=== PATIENT | female | born 1950 | race Asian ===

== ENCOUNTER 2017-02-21 18:23 | Inpatient (IN) | payer MEDICARE, BC ==
--- NOTE | 2017-02-21 18:39 | ED Physician Chart ---
ED Chief Complaint/HPI - Patient Information Date Seen:: 02/21/17 Time Seen:: 18:30 Chief Complaint:: Abdominal Pain History of Present Illness:: onset x one day of diffuse, intermittent, crampy abdominal pain, anorexia, failure to thrive, and poor oral intake; no report of trauma, H/As, S/T, neck pain, C/P, SOB, Flank Pain, Cough, N/V/D/C, fever, chills, or urinary s/s Allergies:: Allergies Allergy/AdvReac Type Severity Reaction Status Date / Time No Known Allergies Allergy Verified 02/21/17 18:30 Historian:: Patient, EMS, Family Member Review:: Nurse's Note Reviewed, EMS run form Reviewed, Transfer documents Reviewed ED Review of Systems - Review of Systems General/Constitutional: Fever, No chills, No weight loss, Weakness, No diaphoresis, No edema, No loss of appetite Skin: Skin lesions, No rash, No bruising Head: No headache, No light-headedness Eyes: No loss of vision, No pain, No diplopia ENT: No earache, No nasal drainage, No sore throat, No tinnitus Neck: No neck pain, No swelling, No thyromegaly, No stiffness, No mass noted Cardio Vascular: No chest pain, Palpitations, No PND, No orthopnea, No edema Pulmonary: No SOB, Cough, No cough, No sputum, No wheezing GI: Nausea, Vomiting, Diarrhea, No pain, No melena, No hematochezia, No constipation, No hematemesis G/U: No dysuria, No frequency, No hematuria Musculoskeletal: Bone or joint pain, No bone or joint pain, Back pain, Muscle pain Endocrine: Polyuria, Polydipsia Psychiatric: Prior psych history, Depression, No anxiety, No suicidal ideation, No homicidal ideation, No auditory hallucination, No visual hallucination Hematopoietic: No bruising, No lymphadenopathy Allergic/Immuno: No urticaria, No angioedema Neurological: No syncope, No focal symptoms, Weakness, No paresthesia, No headache, No seizure, No dizziness, No confusion, No vertigo ED Past Medical History - Past Medical History Obtainable: Yes Past Medical History: HTN, DM, Dyslipidemia, PUD/GERD, Arthritis Family History: Diabetes Melitus, HTN Social History: Non Smoker, No Alcohol, No Drug Use, Single, Care Facility Surgical History: other ( Surgery) Psychiatricy History: Depression Medication: Reviewed Family Medical History - Family Member Mother History Unknown: Yes ED Physical Exam - Physical Examination General/Constitutional: Awake, Well-developed, well-nourished, Alert, No distress, GCS 15, Non-toxic appearing, Ambulatory Head: Atraumatic Eyes: Lids, conjuctiva normal, PERRL, EOMI Skin: Nl inspection, No rash, No skin lesions, No ecchymosis, Well hydrated, No lymphadenopathy Other Skin comments:: + Ulcers ENMT: External ears, nose nl, Nasal exam nl, Lips, teeth, gums nl Neck: Nontender, Full ROM w/o pain, No JVD, No nuchal rigidity, No bruit, No mass, No stridor Respiratory: Nl effort/Exclusion, Clear to Auscultation, No Wheeze/Rhonchi/Rales Cardio Vascular: RRR, No murmur, gallop, rubs, NL S1 S2 GI: No tenderness/rebounding/guarding, No organomegaly, No hernia, Normal BS's, Nondistended, No mass/bruits, No McBurney tenderness : No CVA tenderness Extremities: No tenderness or effusion, Full ROM, normal strength in all extremities, No edema, Normal digits & nails Neuro/Psych: Alert/oriented, DTR's symmetric, Normal sensory exam, Normal motor strength, Judgement/insight normal, Mood normal, Normal gait, No focal deficits Misc: Normal back, No paraspinal tenderness ED Septic Shock - . Is Septic Shock (SBP<90, OR Lactate>4 mmol\L) present?: No ED Reassessment (Disposition) - Reassessment Reassessment Condition:: Improved - Diagnosis Diagnosis:: Dehydration; Failure To Thrive; Anorexia; Abdominal Pain; Ulcers; Sepsis - Aftercare/Follow up Instructions Aftercare/Follow-Up Instructions:: Counseled pt regarding lab results/diagnosis & need follow up, Counseled pt & family regarding lab results/diagnosis & need follow up - Patient Disposition Discharge/Transfer:: Acute Care w/in this hosp Accepting Physician:: Dr. Enamorado Time Called:: 1844 Time Responded:: 18:45 Admitted to:: Telemetry Spoke to:: Dr. Enamorado Admitting Medical Physician:: Dr. Fei Condition at Disposition:: Stable, Improved
[2017-02-21] MEDS ORDERED: cefTRIAXone 1 GM in Sodium Chloride 0.9% 50 ML IV ONE (18:47)
[2017-02-21] MEDS ORDERED: Sodium Chloride 0.9% 1,000 ML IV ONE (18:49)
[2017-02-21 19:16] LABS: % BASOPHILS 0.7 % (0.0-2.0); % EOSINOPHILS 15.1 % (0.0-5.0); % LYMPHOCYTES 11.9 % (20.0-50.0); % MONOCYTES 8.5 % (2.0-10.0); % NEUTROPHILS 63.8 % (40.0-80.0); HEMOGLOBIN 11.1 gm/dL (12-16); MEAN CELL VOLUME 89.6 fl (81-100); MEAN CORPUSCULAR HEMOGLOBIN 30.3 pg (27.0-31.0); MEAN CORPUSCULAR HGB CONC 33.8 pg (28.0-36.0); MEAN PLATELET VOLUME 7.9 fl; NEUTROPHILE ABSOLUTE 7.1 Th/cmm (1.8-8.0); PLATELET COUNT 384 Th/cmm (150-400); RED BLOOD COUNT 3.68 Mil/cmm (3.80-5.20); WHITE BLOOD COUNT 11.2 Th/cmm (4.8-10.8)
[2017-02-21 19:32] LABS: ALB/GLOB RATIO 0.9 (1.0-1.8); ALKALINE PHOSPHATASE 158 U/L (34-104); ANION GAP 15.4 (7.0-16.0); BILIRUBIN,TOTAL 0.6 mg/dL (0.3-1.0); BUN - UREA NITROGEN 17 mg/dL (7-25); BUN/CREATININE RATIO 21.3; CALCIUM SERUM 9.2 mg/dL (8.6-10.3); CARBON DIOXIDE 13.4 mEq/L (21.0-31.0); CHLORIDE 106 mEq/L (98-107); CHOLESTEROL 206 mg/dL (<200); CREATININE - SERUM 0.8 mg/dL (0.6-1.2); GLUCOSE 102 mg/dL (70-105); POTASSIUM SERUM 3.8 mEq/L (3.5-5.1); SGOT 29 U/L (13-39); SGPT/ALT 21 U/L (7-52); SODIUM SERUM 131 mEq/L (136-145); TRIGLYCERIDES 134 mg/dL (<150)
--- NOTE | 2017-02-21 19:38 | ED Physician Chart ---
ED Chief Complaint/HPI - Patient Information Allergies:: Allergies Allergy/AdvReac Type Severity Reaction Status Date / Time No Known Allergies Allergy Verified 02/21/17 18:30 Vitals:: Vital Signs - 8 hr 02/21/17 02/21/17 18:30 19:33 Temp 99.5 F 99.3 F HR 114 110 RR 22 20 BP 143/66 138/67 O2 Sat % 94 96 Family Medical History - Family Member Mother History Unknown: Yes ED Labs/Radiology/EKG Results - Lab Results Results: Laboratory Tests 02/21/17 02/21/17 02/21/17 19:00 19:00 19:04 WBC 11.2 H RBC 3.68 L Hgb 11.1 L Hct 33.0 L MCV 89.6 MCH 30.3 MCHC Differential 33.8 RDW 17.0 Plt Count 384 MPV 7.9 Neutrophils % 63.8 Lymphocytes % 11.9 L Monocytes % 8.5 Eosinophils % 15.1 H Basophils % 0.7 Sodium 131 L Potassium 3.8 Chloride 106 Carbon Dioxide 13.4 L Anion Gap 15.4 BUN 17 Creatinine 0.8 Est GFR ( Amer) > 60.0 Est GFR (Non-Af Amer) > 60.0 BUN/Creatinine Ratio 21.3 Glucose 102 Whole Bld Lactic Acid 0.62 Calcium 9.2 Total Bilirubin 0.6 AST 29 ALT 21 Alkaline Phosphatase 158 H Creatine Kinase 10 L Total Protein 7.1 Albumin 3.3 L Globulin 3.8 Albumin/Globulin Ratio 0.9 L Triglycerides 134 Cholesterol 206 H LDL Cholesterol Direct 153 HDL Cholesterol 32 CBC: Mild leukocytosis and mild anemia. Platelet count was within the normal range. Metabolic studies show a mild hyponatremia with a sodium of 131. The serum potassium is within normal parameters as is the chloride. Bicarbonate was slightly depressed at 13.4. Renal function studies were within normal parameters. Lactic acid was 0.62. Liver function studies showed a normal AST and ALT. Was mild elevation of the alkaline phosphatase. Her CK level was normal. EKG: The patient has a sinus tachycardia at a rate of 104. No ectopy is noted. His CO interval is normal. QRS duration is normal. The QT interval is normal. The patient has a normal QRS axis. T waves are mildly flattened in the precordial leads from V1 through V5. No ST segment elevation or depression. Impression: No ischemic findings. Mild tachycardia. Single view chest x-ray: No cardiomegaly or CHF. No no pneumothorax or pleural effusions. No areas of pulmonary infiltrate or consolidation. Pression: No acute cardiopulmonary findings. ED Septic Shock - . Is Septic Shock (SBP<90, OR Lactate>4 mmol\L) present?: No - <6hrs of presentation: Vital Signs: Vital Signs - 8 hr 02/21/17 02/21/17 18:30 19:33 Temp 99.5 F 99.3 F HR 114 110 RR 22 20 BP 143/66 138/67 O2 Sat % 94 96
[2017-02-21 20:09] LABS: INR 0.9 (0.5-1.4); PROTHROMBIN TIME (TEST) 9.4 SECONDS (9.5-11.5)
[2017-02-21] MEDS ORDERED: Sodium Chloride 0.9% 1,000 ML IV SCH (22:54)
[2017-02-21 23:45] VITALS: BP 140/70
[2017-02-22] MEDS: D5-0.45NS 1,000 ML IV SCH ×3 (00:58→21:53)
[2017-02-22 04:30] LABS: URINE BILIRUBIN NEGATIVE (NEGATIVE); URINE BLOOD NEGATIVE (NEGATIVE); URINE GLUCOSE (UA) NEGATIVE (NEGATIVE); URINE KETONE 15 mg/dL (NEGATIVE); URINE PROTEIN 30 mg/dL (NEGATIVE); URINE UROBILINOGEN 0.2 E.U./dL (0.2 - 1.0)
[2017-02-22 04:45] LABS: URINE COLOR YELLOW
[2017-02-22 04:46] LABS: URINE BACTERIA MODERATE /hpf (NONE SEEN); URINE EPITHELIAL CELLS FEW /lpf (FEW); URINE RBC 0-2 /hpf (0-5); URINE WBC 25-50 /hpf (0-5)
[2017-02-22 05:09] LABS: % LYMPHOCYTES 13.9 % (20.0-50.0); % MONOCYTES 9.6 % (2.0-10.0); % NEUTROPHILS 60.5 % (40.0-80.0); HEMOGLOBIN 10.1 gm/dL (12-16); MEAN CELL VOLUME 89.4 fl (81-100); MEAN CORPUSCULAR HEMOGLOBIN 30.7 pg (27.0-31.0); MEAN CORPUSCULAR HGB CONC 34.4 pg (28.0-36.0); MEAN PLATELET VOLUME 7.7 fl; NEUTROPHILE ABSOLUTE 5.4 Th/cmm (1.8-8.0); PLATELET COUNT 338 Th/cmm (150-400); RED CELL DISTRIBUTION WIDTH 16.6 % (11.5-20.0); WHITE BLOOD COUNT 9.1 Th/cmm (4.8-10.8)
[2017-02-22 05:17] LABS: HEMATOCRIT 29.5 % (41.0-60)
[2017-02-22 05:22] LABS: ANION GAP 13.1 (7.0-16.0); BUN - UREA NITROGEN 13 mg/dL (7-25); BUN/CREATININE RATIO 18.6; CALCIUM SERUM 8.5 mg/dL (8.6-10.3); CARBON DIOXIDE 14.4 mEq/L (21.0-31.0); CHLORIDE 108 mEq/L (98-107); CREATININE - SERUM 0.7 mg/dL (0.6-1.2); GLUCOSE 102 mg/dL (70-105); POTASSIUM SERUM 3.5 mEq/L (3.5-5.1); SODIUM SERUM 132 mEq/L (136-145)
--- NOTE | 2017-02-22 07:45 | Diagnostic Imaging Report ---
Portable chest x-ray Time: 1912 hours History: Chest pain Allowing for portable technique the heart size is normal. No focal pulmonary parenchymal processes. No hilar or mediastinal abnormalities. Impression: No acute abnormalities.
[2017-02-22] MEDS ORDERED: ARMODAFINIL 100 MG PO SCH (09:00)
[2017-02-22] MEDS: Pantoprazole 40 mg EC Tab PO SCH ×2 (09:53→17:19)
[2017-02-22] MEDS: Ferrous Sulfate 325 MG TAB PO SCH (09:54)
--- NOTE | 2017-02-22 10:40 | Diagnostic Imaging Report ---
Ultrasound abdomen HISTORY: Abdominal pain COMPARISON: None Technique: Sonography of the abdomen was performed in multiple planes. FINDINGS: Exam is limited due to bowel gas. The liver demonstrates normal echogenicity with no evidence of focal lesions. The liver measures 16 cm. The gallbladder was difficult to visualize. Gallbladder sludge and likely multiple small gallstones are noted. The gallbladder wall measures 3 mm. The common bile duct measures 3 mm. Evaluation of the pancreas is limited due to bowel gas. The right kidney measures 10.8 x 5.2 cm. The left kidney measures 11.0 x 5.4 cm. No evidence of focal lesions or hydronephrosis. Note, the renal margins are not well-defined due to bowel gas. The spleen measures 9.9 cm. The visualized portion of the abdominal aorta with are within normal limits in size. IMPRESSION: Limited assessment of the gallbladder. Gallbladder sludge is noted with likely multiple small gallstones. Borderline prominent gallbladder wall is noted. No pericholecystic fluid. Please correlate with clinical findings. No evidence of hydronephrosis.
[2017-02-22] MEDS: cefTRIAXone 1 GM in Sodium Chloride 0.9% 50 ML IV SCH (21:59)
--- NOTE | 2017-02-22 22:47 | History & Physical ---
ADMIT DATE: HISTORY OF PRESENT ILLNESS: The patient came to the Emergency Room complaining of severe abdominal pain ____ crampy pain, and vomiting, and also abnormal electrolytes, and she was tachycardic. The patient was seen in the Emergency Room, was noted to have tachycardia and hyponatremia and possible UTI and the patient was admitted. The history was obtained talking to the family members. He is [place]ron[place]. The patient has fever, no chills. No weight loss, has some skin lesion, no history of any headache, no neck pain. No chest pain, no shortness of breath, no nausea, vomiting. The patient has some dysuria and frequency. PAST MEDICAL HISTORY: As enumerated above, history of hypertension, diabetes, hyperlipidemia, GERD, arthritis. SOCIAL HISTORY: Nonsmoker, nondrinker. PAST SURGICAL HISTORY: surgery in the past and the patient has history of depression. PHYSICAL EXAMINATION: GENERAL: Awake, alert female, tachycardic, appears toxic. HEAD: Normal. ENT: Normal. LUNGS: Bilateral rhonchi. CARDIOVASCULAR SYSTEM: S1, S2 heard. ABDOMEN: Soft. Bowel sounds are heard. CENTRAL NERVOUS SYSTEM: Grossly normal. DIAGNOSES: Vomiting, abdominal pain, failure to thrive, dehydration, also has a history of rule out sepsis, history of hypertension, diabetes, hyperlipidemia, peptic ulcer disease, gastroesophageal reflux disease, history of arthritis. PLAN: The patient is going to be admitted and we will do a septic workup, give her IV fluids, antibiotics, and I will have Dr. Obi Ruff, ID doctor see the patient as well and I will follow the patient. [facility]# [id number]
[2017-02-23] MEDS: Ferrous Sulfate 325 MG TAB PO SCH (09:07)
[2017-02-23] MEDS: Pantoprazole 40 mg EC Tab PO SCH ×2 (09:08→17:13)
[2017-02-23 09:59] LABS: % LYMPHOCYTES 12.5 % (20.0-50.0); % MONOCYTES 12.3 % (2.0-10.0); % NEUTROPHILS 65.2 % (40.0-80.0); HEMATOCRIT 31.5 % (41.0-60); HEMOGLOBIN 10.6 gm/dL (12-16); MEAN CELL VOLUME 90.3 fl (81-100); MEAN CORPUSCULAR HEMOGLOBIN 30.3 pg (27.0-31.0); MEAN CORPUSCULAR HGB CONC 33.6 pg (28.0-36.0); MEAN PLATELET VOLUME 7.4 fl; NEUTROPHILE ABSOLUTE 8.1 Th/cmm (1.8-8.0); PLATELET COUNT 329 Th/cmm (150-400); RED BLOOD COUNT 3.49 Mil/cmm (3.80-5.20); RED CELL DISTRIBUTION WIDTH 16.8 % (11.5-20.0)
[2017-02-23 10:11] LABS: WHITE BLOOD COUNT 12.3 Th/cmm (4.8-10.8)
[2017-02-23 10:22] LABS: ANION GAP 11.6 (7.0-16.0); BUN - UREA NITROGEN 7 mg/dL (7-25); BUN/CREATININE RATIO 8.8; CARBON DIOXIDE 15.7 mEq/L (21.0-31.0); CHLORIDE 108 mEq/L (98-107); CREATININE - SERUM 0.8 mg/dL (0.6-1.2); GLUCOSE 108 mg/dL (70-105); POTASSIUM SERUM 3.3 mEq/L (3.5-5.1); SODIUM SERUM 132 mEq/L (136-145)
--- NOTE | 2017-02-23 10:26 | General Progress Note ---
Subjective - Review of Systems Events since last encounter: patient with c/o abd pain no acute distress Objective - Results Result Diagrams: 02/23/17 09:45 02/22/17 04:49 Recent Labs: Laboratory Last Values WBC 12.3 Th/cmm (4.8-10.8) H D 02/23/17 09:45 RBC 3.49 Mil/cmm (3.80-5.20) L 02/23/17 09:45 Hgb 10.6 gm/dL (12-16) L 02/23/17 09:45 Hct 31.5 % (41.0-60) L 02/23/17 09:45 MCV 90.3 fl (81-100) 02/23/17 09:45 MCH 30.3 pg (27.0-31.0) 02/23/17 09:45 MCHC Differential 33.6 pg (28.0-36.0) 02/23/17 09:45 RDW 16.8 % (11.5-20.0) 02/23/17 09:45 Plt Count 329 Th/cmm (150-400) 02/23/17 09:45 MPV 7.4 fl 02/23/17 09:45 Neutrophils % 65.2 % (40.0-80.0) 02/23/17 09:45 Lymphocytes % 12.5 % (20.0-50.0) L 02/23/17 09:45 Monocytes % 12.3 % (2.0-10.0) H 02/23/17 09:45 Eosinophils % 10.0 % (0.0-5.0) H 02/23/17 09:45 Basophils % 0.0 % (0.0-2.0) 02/23/17 09:45 PT 9.4 SECONDS (9.5-11.5) L 02/21/17 19:00 INR 0.90 (0.5-1.4) 02/21/17 19:00 PTT (Actin FS) 33.8 SECONDS (26.0-38.0) 02/21/17 19:00 Sodium 132 mEq/L (136-145) L 02/22/17 04:49 Potassium 3.5 mEq/L (3.5-5.1) 02/22/17 04:49 Chloride 108 mEq/L (98-107) H 02/22/17 04:49 Carbon Dioxide 14.4 mEq/L (21.0-31.0) L 02/22/17 04:49 Anion Gap 13.1 (7.0-16.0) 02/22/17 04:49 BUN 13 mg/dL (7-25) 02/22/17 04:49 Creatinine 0.7 mg/dL (0.6-1.2) 02/22/17 04:49 Est GFR ( Amer) > 60.0 ml/min (>90) 02/22/17 04:49 Est GFR (Non-Af Amer) > 60.0 ml/min 02/22/17 04:49 BUN/Creatinine Ratio 18.6 02/22/17 04:49 Glucose 102 mg/dL (70-105) 02/22/17 04:49 Whole Bld Lactic Acid 0.62 mmol/L (0.60-1.99) 02/21/17 19:04 Calcium 8.5 mg/dL (8.6-10.3) L 02/22/17 04:49 Total Bilirubin 0.6 mg/dL (0.3-1.0) 02/21/17 19:00 AST 29 U/L (13-39) 02/21/17 19:00 ALT 21 U/L (7-52) 02/21/17 19:00 Alkaline Phosphatase 158 U/L (34-104) H 02/21/17 19:00 Creatine Kinase 10 U/L (30-223) L 02/21/17 19:00 Troponin I 0.01 ng/mL (0.01-0.05) 02/21/17 19:04 B-Natriuretic Peptide 17.8 pg/mL (5.0-100.0) 02/21/17 19:00 Total Protein 7.1 gm/dL (6.0-8.3) 02/21/17 19:00 Albumin 3.3 gm/dL (3.7-5.3) L 02/21/17 19:00 Globulin 3.8 gm/dL 02/21/17 19:00 Albumin/Globulin Ratio 0.9 (1.0-1.8) L 02/21/17 19:00 Triglycerides 134 mg/dL (<150) 02/21/17 19:00 Cholesterol 206 mg/dL (<200) H 02/21/17 19:00 LDL Cholesterol Direct 153 mg/dL (75-193) 02/21/17 19:00 HDL Cholesterol 32 mg/dL (23-92) 02/21/17 19:00 Urine Source CLEAN C 02/22/17 02:10 Urine Color YELLOW 02/22/17 02:10 Urine Clarity HAZY (CLEAR) 02/22/17 02:10 Urine pH 6.0 (4.6 - 8.0) 02/22/17 02:10 Ur Specific [place] 1.020 (1.005-1.030) 02/22/17 02:10 Urine Protein 30 mg/dL (NEGATIVE) H 02/22/17 02:10 Urine Glucose (UA) NEGATIVE mg/dL (NEGATIVE) 02/22/17 02:10 Urine Ketones 15 mg/dL (NEGATIVE) H 02/22/17 02:10 Urine Blood NEGATIVE (NEGATIVE) 02/22/17 02:10 Urine Nitrate NEGATIVE (NEGATIVE) 02/22/17 02:10 Urine Bilirubin NEGATIVE (NEGATIVE) 02/22/17 02:10 Urine Urobilinogen 0.2 E.U./dL (0.2 - 1.0) 02/22/17 02:10 Ur Leukocyte Esterase SMALL (NEGATIVE) H 02/22/17 02:10 Urine RBC 0-2 /hpf (0-5) 02/22/17 02:10 Urine WBC 25-50 /hpf (0-5) H 02/22/17 02:10 Ur Epithelial Cells FEW /lpf (FEW) 02/22/17 02:10 Urine Bacteria MODERATE /hpf (NONE SEEN) 02/22/17 02:10 - Physical Exam Vitals and I&O: Vital Signs Temp 98.7 F 02/23/17 08:00 Pulse 107 02/23/17 08:00 Resp 20 02/23/17 08:00 BP 117/55 02/23/17 08:00 Pulse Ox 96 02/23/17 08:00 Intake & Output 02/22/17 02/23/17 02/23/17 18:59 06:59 18:59 Intake Total 1310 1891.667 Balance 1310 1891.667 Weight (lbs) 71.668 kg 60.781 kg Intake: Intake, IV Amount 460 1891.667 D5-0.45NS 1,000 ml @ 436 081 4405.667 mls/hr IV .Q10H [facility] Rx#: [id number] cefTRIAXone 1 gm In 50 Sodium Chloride 0.9% 50 ml @ 100 mls/hr IV Q24HR [facility] Rx#:[id number] Oral 850 Other: # Voids 5 3 Stool Characteristics Soft Active Medications: Current Medications Acetaminophen (Tylenol) 650 mg PO Q6HR PRN PRN Reason: MILD-MODERATE PAIN Stop: 04/22/17 22:48 Last Admin: 02/23/17 04:48 Dose: 650 mg Allopurinol (Zyloprim) 100 mg PO TID [facility] Stop: 04/23/17 08:59 Last Admin: 02/23/17 09:08 Dose: 100 mg Ascorbic Acid (Vitamin C) 500 mg PO BID [facility] Stop: 04/23/17 08:59 Last Admin: 02/23/17 09:08 Dose: 500 mg Bethanechol Chloride (Urecholine) 25 mg PO TID [facility] Stop: 04/23/17 08:59 Last Admin: 02/23/17 09:08 Dose: 25 mg Docusate Sodium (Colace) 100 mg PO BID [facility] Stop: 04/23/17 08:59 Last Admin: 02/23/17 09:07 Dose: 100 mg Ferrous Sulfate (Iron) 325 mg PO DAILY [facility] Stop: 04/23/17 08:59 Last Admin: 02/23/17 09:07 Dose: 325 mg Ceftriaxone Sodium 1 gm/ (Sodium Chloride) 50 mls @ 100 mls/hr IV Q24HR [facility] Stop: 04/23/17 20:59 Last Infusion: 02/23/17 06:19 Dose: Infused Dextrose/Sodium Chloride (D5-0.45ns) 1,000 mls @ 100 mls/hr IV .Q10H [facility] Stop: 04/22/17 22:59 Last Infusion: 02/23/17 06:18 Dose: 100 mls/hr Megestrol Acetate (Megace) 400 mg PO BID [facility] Stop: 04/23/17 08:59 Last Admin: 02/23/17 09:07 Dose: 400 mg Metoclopramide HCl (Reglan) 10 mg PO ACHS [facility] Stop: 04/23/17 07:29 Last Admin: 02/23/17 06:38 Dose: 10 mg Mirtazapine (Remeron) 15 mg PO HS [facility] PRN Reason: Protocol Stop: 04/23/17 20:59 Last Admin: 02/22/17 21:55 Dose: 15 mg Miscellaneous (Armodafinil [Armodafinil]) 100 mg PO TID [facility] Stop: 04/23/17 08:59 Ondansetron HCl (Zofran) 4 mg IV Q8H PRN PRN Reason: Nausea / Vomiting Stop: 04/22/17 22:55 Pantoprazole Sodium (Protonix) 40 mg PO BID [facility] Stop: 04/23/17 08:59 Last Admin: 02/23/17 09:08 Dose: 40 mg Senna (Senna) 17.2 mg PO HS [facility] Stop: 04/23/17 20:59 Last Admin: 02/22/17 21:55 Dose: 17.2 mg Sertraline HCl (Zoloft) 50 mg PO DAILY [facility] Stop: 04/23/17 08:59 Last Admin: 02/23/17 09:08 Dose: 50 mg Tramadol HCl (Ultram) 50 mg PO Q6H PRN PRN Reason: SEVERE PAIN Stop: 04/22/17 22:48 General: No acute distress HEENT: Atraumatic, PERRLA Neck: Supple, Thyromegaly Cardiovascular: Regular rate, Normal S1 Lungs: Clear to auscultation Abdomen: Bowel sounds Assessment/Plan - Problem List Patient Problems: All Active Problems DEHYDRATION WITH POOR ORAL INTAKE (Acute) - Plan Plan: cpm
[2017-02-23] MEDS ORDERED: Probiotic Screen MC PRN (11:15)
--- NOTE | 2017-02-23 17:01 | Consultation ---
Consult Note - Consult Note Service Date: 02/23/17 Referring Physician: Lindsay Enamorado Consult Note: PHYSICIAN Consultation Note: Date of Admission: 02/21/17 Purpose of Consultation: UTI. Chief Complaint: Patient CINTHYA CORNEJO was admitted to [facility] with DEHYDRATION, FAILURE TO THRIVE,R/O SEPSIS. History of Present Illness: 66 year old female was brought for hospital for not eating enough for last couple of month. She was diagnosed uterine ca with mets, and had total hysterectomy and bilateral oophorectomy was performed one month ago. she had been afebrile. no pain, no dysuria. urine culture grew Enterococcus and ID consult was called for further antibiotic management. Past Medical History: HTN, DM, Dyslipidemia, PUD/GERD, Arthritis, Uterine CA with mets. Diagnoses TYPE 2 DIABETES MELLITUS WITHOUT COMPLICATIONS (02/21/17) HYPERLIPIDEMIA, UNSPECIFIED (02/21/17) DEHYDRATION (02/21/17) HYPO-OSMOLALITY AND HYPONATREMIA (02/21/17) ESSENTIAL (PRIMARY) HYPERTENSION (02/21/17) GASTRO-ESOPHAGEAL REFLUX DISEASE WITHOUT ESOPHAGITIS (02/21/17) PEPTIC ULC, SITE UNSP, UNSP AC OR CHR, W/O HEMOR OR PERF (02/21/17) UNSPECIFIED OSTEOARTHRITIS, UNSPECIFIED SITE (02/21/17) UNSPECIFIED ABDOMINAL PAIN (02/21/17) ADULT FAILURE TO THRIVE (02/21/17) Allergies Allergy/AdvReac Type Severity Reaction Status Date / Time No Known Allergies Allergy Verified 02/21/17 18:30 Vital Signs Temp 99.1 F 02/23/17 16:00 Pulse 105 02/23/17 16:00 Resp 20 02/23/17 16:00 BP 115/65 02/23/17 16:00 Pulse Ox 98 02/23/17 16:00 Intake & Output 02/22/17 02/23/17 02/23/17 18:59 06:59 18:59 Intake Total 1310 1891.667 Balance 1310 1891.667 Weight (lbs) 71.668 kg 60.781 kg Intake: Intake, IV Amount 460 1891.667 D5-0.45NS 1,000 ml @ 050 063 7716.667 mls/hr IV .Q10H [facility] Rx#: [id number] cefTRIAXone 1 gm In 50 Sodium Chloride 0.9% 50 ml @ 100 mls/hr IV Q24HR [facility] Rx#:[id number] Oral 850 Other: # Voids 5 3 Stool Characteristics Soft Laboratory Results - last 24 hr 02/23/17 02/23/17 09:45 09:45 WBC 12.3 H D RBC 3.49 L Hgb 10.6 L Hct 31.5 L MCV 90.3 MCH 30.3 MCHC Differential 33.6 RDW 16.8 Plt Count 329 MPV 7.4 Neutrophils % 65.2 Lymphocytes % 12.5 L Monocytes % 12.3 H Eosinophils % 10.0 H Basophils % 0.0 Sodium 132 L Potassium 3.3 L Chloride 108 H Carbon Dioxide 15.7 L Anion Gap 11.6 BUN 7 Creatinine 0.8 Est GFR ( Amer) > 60.0 Est GFR (Non-Af Amer) > 60.0 BUN/Creatinine Ratio 8.8 Glucose 108 H Calcium 8.0 L Home Medication Medication Instructions Recorded Type Acetaminophen [Tylenol] 650 mg PO Q6HR PRN 02/21/17 History Allopurinol 100 mg PO TID 02/21/17 History Armodafinil 100 mg PO TID 02/21/17 History Ascorbic Acid 500 mg PO BID 02/21/17 History Bethanechol Chloride 25 mg PO TID 02/21/17 History Docusate Sodium [Colace] 100 mg PO BID 02/21/17 History Ferrous Sulfate 1 tab PO DAILY 02/21/17 History Megestrol Acetate 400 mg PO BID 02/21/17 History Metoclopramide HCl 10 mg PO ACHS 02/21/17 History Pantoprazole [Protonix] 40 mg PO BID 02/21/17 History Sennosides A and B [Senna] 2 tab PO HS 02/21/17 History Sertraline HCl [Zoloft] 50 mg PO DAILY 02/21/17 History Tramadol HCl [Ultram] 50 mg PO Q6H PRN 02/21/17 History Current Medications Generic Name Dose Route Start Last Admin Trade Name Freq PRN Reason Stop Dose Admin Acetaminophen 650 mg 02/21/17 22:49 02/23/17 04:48 Tylenol PO 04/22/17 22:48 650 mg Q6HR PRN Administration MILD-MODERATE PAIN Allopurinol 100 mg 02/22/17 09:00 02/23/17 09:08 Zyloprim PO 04/23/17 08:59 100 mg TID [facility] Administration Ascorbic Acid 500 mg 02/22/17 09:00 02/23/17 09:08 Vitamin C PO 04/23/17 08:59 500 mg BID [facility] Administration Bethanechol Chloride 25 mg 02/22/17 09:00 02/23/17 09:08 Urecholine PO 04/23/17 08:59 25 mg TID [facility] Administration Docusate Sodium 100 mg 02/22/17 09:00 02/23/17 09:07 Colace PO 04/23/17 08:59 100 mg BID [facility] Administration Ferrous Sulfate 325 mg 02/22/17 09:00 02/23/17 09:07 Iron PO 04/23/17 08:59 325 mg DAILY [facility] Administration Ceftriaxone Sodium 1 gm/ 50 mls @ 100 mls/hr 02/22/17 21:00 02/23/17 06:19 Sodium Chloride IV 04/23/17 20:59 Infused Q24HR [facility] Infusion Dextrose/Sodium Chloride 1,000 mls @ 100 mls/hr 02/21/17 23:00 02/23/17 06:18 D5-0.45ns IV 04/22/17 22:59 100 mls/hr .Q10H [facility] Infusion Lactobacillus Rhamnosus 1 each 02/24/17 09:00 Culturelle PO 04/25/17 08:59 DAILY [facility] Megestrol Acetate 400 mg 02/22/17 09:00 02/23/17 09:07 Megace PO 04/23/17 08:59 400 mg BID [facility] Administration Metoclopramide HCl 10 mg 02/22/17 07:30 02/23/17 12:24 Reglan PO 04/23/17 07:29 10 mg ACHS [facility] Administration Mirtazapine 15 mg 02/22/17 21:00 02/22/17 21:55 Remeron PO 04/23/17 20:59 15 mg HS [facility] Administration Protocol Miscellaneous 100 mg 02/22/17 09:00 Armodafinil [Armodafinil] PO 04/23/17 08:59 TID [facility] Miscellaneous 1 ea 02/23/17 11:15 Probiotic Screen MC 04/24/17 11:14 PRN PRN PROTOCOL Ondansetron HCl 4 mg 02/21/17 22:56 Zofran IV 04/22/17 22:55 Q8H PRN Nausea / Vomiting Pantoprazole Sodium 40 mg 02/22/17 09:00 02/23/17 09:08 Protonix PO 04/23/17 08:59 40 mg BID [facility] Administration Senna 17.2 mg 02/22/17 21:00 02/22/17 21:55 Senna PO 04/23/17 20:59 17.2 mg HS [facility] Administration Sertraline HCl 50 mg 02/22/17 09:00 02/23/17 09:08 Zoloft PO 04/23/17 08:59 50 mg DAILY [facility] Administration Tramadol HCl 50 mg 02/21/17 22:49 Ultram PO 04/22/17 22:48 Q6H PRN SEVERE PAIN Review of Systems: A 12 point ROS was reviewed with the pertinent positive and negatives noted in the HPI. Social History Smoking Status Unknown if ever smoked Family Medical History Family Medical History Start: 02/21/17 20: 49 Freq: ONCE Status: Active Document 02/21/17 23:47 ASHOK (Rec: 02/21/17 23:54 ASHOK ROMERO- [id number]) Family Medical History Mother History Unknown Yes Physical Exam: General: Comfortable lying in bed not in acute distress. HEENT: Head: Normocephalic. Atraumatic. Oral cavity: Moist, pink tongue. Eyes : No pallor and icterus. Neck: Supple, no JVD, no use of XI muscle. Cardio: S1 and S2 within normal limits regular rhythm. Respiratory: Vesicular breath sound, no crackles no wheezing. Abdominal: Soft, nontender nondistended, bowel sounds present, surgical wound is healing well. acolostomy OK in LLQ. Genital/Urinary: Deferred Extremities: N CCE. Neurological: Alert, awake, oriented 3. Assessment: 1. UTI. 2. H/o uterine CA. 3. Failure to thrive. 4. H/o PUD. Plan: Change rocephin to unasyn. follow up urine c/s report. CT A/P if not done. Thank you Dr Enamorado for involving me in taking care of this patient. Sofy, Obi Ruff M.D. [id number]
--- NOTE | 2017-02-23 22:06 | Consultation ---
DATE OF CONSULTATION: 02/22/2017 REASON FOR CONSULTATION: Failure to thrive. HISTORY OF PRESENT ILLNESS: This consult obtained through the courtesy of Dr. Enamorado for this 66-year-old with history of abdominal cancer. Family is not sure whether it was uterine or pancreatic. She had hysterectomy and they got most of the tumor, but still was outside of that. The patient is getting chemotherapy. Meanwhile, she is not eating well, so GI consult was called in for further evaluation. The patient has lost weight since surgery. She came to the Emergency Room. She was in extensive care facility, found to be tachycardic and hyponatremic. PAST MEDICAL HISTORY: Abdominal cancer, hypertension, diabetes, hyperlipidemia, GERD, and arthritis. PAST SURGICAL HISTORY: Abdominal surgery for cancer. SOCIAL HISTORY: Nonsmoker, nonalcoholic, IV drug abuser. FAMILY HISTORY: Noncontributory. REVIEW OF SYSTEMS: There is weight loss. There is abdominal pain. There is nausea. ALLERGIES: NO KNOWN DRUG ALLERGIES. MEDICATIONS: The patient is on Tylenol, allopurinol, vitamin C, Rocephin, Colace, iron, lactobacillus, Megace, and metoprolol. PHYSICAL EXAMINATION: GENERAL: The patient is awake, oriented to self, place, and time, in mild distress. VITAL SIGNS: Temperature was 99.5. Blood pressure was 120/62. Heart rate was 106. HEAD AND NECK: Pupils are reactive to light and accommodation. Extraocular muscles are intact. Sclerae are anicteric. Conjunctivae not pale. Oral cavity, no lesion. NECK: Supple. No jugular venous distention. No carotid bruit or lymph node. CHEST: Good respiratory movements. LUNGS: Clear to auscultation. CARDIOVASCULAR: Regular rate and rhythm. No murmur or gallop. ABDOMEN: Soft. Positive bowel sound. Mild epigastric tenderness. Mild periumbilical tenderness. EXTREMITIES: No edema. CENTRAL NERVOUS SYSTEM: Grossly nonfocal. LABORATORY DATA: White count was 11.2 and now was normal, H and H of 10.1 and 29.5 with platelets of 338,000. PT is 9.4 seconds. Chemistry showed alkaline phosphatase 158. The rest of liver enzymes is normal. IMPRESSION: This is a 66-year-old with abdominal cancer, now failure to thrive. ASSESSMENT AND PLAN: Failure to thrive. Discussed with the patient and daughter options were G-tube or to start supplements and they wanted the supplement to start, Remeron and Boost, and then further recommendations to follow, but if it is not improving, they are going to consider PEG. 2. Abdominal pain, most likely from the cancer. We will appreciate Oncology evaluation, but meanwhile, there is no reason for further investigation. She had extensive investigations in the past, but we will try to get records from other hospitals. Other medical problems such as diabetes, hypertension, and hyperlipidemia as per Dr. Enamorado. Thank you Dr. Enamorado for allowing me to participate in the care of the patient. If you have any further questions, please let me know. JOB# [id number] JOHN
[2017-02-23] MEDS: D5-0.45NS 1,000 ML IV SCH (23:06)
[2017-02-23] MEDS: cefTRIAXone 1 GM in Sodium Chloride 0.9% 50 ML IV SCH (23:11)
[2017-02-24] MEDS: Ferrous Sulfate 325 MG TAB PO SCH (09:14)
[2017-02-24] MEDS: Lactobacillus Rhamnosus 10 Billion CFU Capsule PO SCH (09:14)
[2017-02-24] MEDS: Pantoprazole 40 mg EC Tab PO SCH ×2 (09:15→17:08)
[2017-02-24 09:19] LABS: % BASOPHILS 0.5 % (0.0-2.0); % EOSINOPHILS 12.6 % (0.0-5.0); % LYMPHOCYTES 15.6 % (20.0-50.0); % MONOCYTES 9.8 % (2.0-10.0); % NEUTROPHILS 61.5 % (40.0-80.0); HEMATOCRIT 30.2 % (41.0-60); HEMOGLOBIN 10.2 gm/dL (12-16); MEAN CELL VOLUME 88.8 fl (81-100); MEAN CORPUSCULAR HEMOGLOBIN 30.1 pg (27.0-31.0); MEAN CORPUSCULAR HGB CONC 33.9 pg (28.0-36.0); MEAN PLATELET VOLUME 7.6 fl; NEUTROPHILE ABSOLUTE 7.1 Th/cmm (1.8-8.0); PLATELET COUNT 327 Th/cmm (150-400); WHITE BLOOD COUNT 11.5 Th/cmm (4.8-10.8)
[2017-02-24] MEDS: D5-0.45NS 1,000 ML IV SCH ×2 (09:31→21:23)
--- NOTE | 2017-02-24 12:31 | Infectious Disease Prog Note ---
Infectious Disease Subjective - Review of Systems Service Date: 02/24/17 Subjective: There is no new change, there is no fever. Infectious Disease Objective - Results Result Diagrams: 02/24/17 09:00 02/23/17 09:45 Recent Labs: Laboratory Last Values WBC 11.5 Th/cmm (4.8-10.8) H 02/24/17 09:00 RBC 3.40 Mil/cmm (3.80-5.20) L 02/24/17 09:00 Hgb 10.2 gm/dL (12-16) L 02/24/17 09:00 Hct 30.2 % (41.0-60) L 02/24/17 09:00 MCV 88.8 fl (81-100) 02/24/17 09:00 MCH 30.1 pg (27.0-31.0) 02/24/17 09:00 MCHC Differential 33.9 pg (28.0-36.0) 02/24/17 09:00 RDW 17.0 % (11.5-20.0) 02/24/17 09:00 Plt Count 327 Th/cmm (150-400) 02/24/17 09:00 MPV 7.6 fl 02/24/17 09:00 Neutrophils % 61.5 % (40.0-80.0) 02/24/17 09:00 Lymphocytes % 15.6 % (20.0-50.0) L 02/24/17 09:00 Monocytes % 9.8 % (2.0-10.0) 02/24/17 09:00 Eosinophils % 12.6 % (0.0-5.0) H 02/24/17 09:00 Basophils % 0.5 % (0.0-2.0) 02/24/17 09:00 PT 9.4 SECONDS (9.5-11.5) L 02/21/17 19:00 INR 0.90 (0.5-1.4) 02/21/17 19:00 PTT (Actin FS) 33.8 SECONDS (26.0-38.0) 02/21/17 19:00 Sodium 132 mEq/L (136-145) L 02/23/17 09:45 Potassium 3.3 mEq/L (3.5-5.1) L 02/23/17 09:45 Chloride 108 mEq/L (98-107) H 02/23/17 09:45 Carbon Dioxide 15.7 mEq/L (21.0-31.0) L 02/23/17 09:45 Anion Gap 11.6 (7.0-16.0) 02/23/17 09:45 BUN 7 mg/dL (7-25) 02/23/17 09:45 Creatinine 0.8 mg/dL (0.6-1.2) 02/23/17 09:45 Est GFR ( Amer) > 60.0 ml/min (>90) 02/23/17 09:45 Est GFR (Non-Af Amer) > 60.0 ml/min 02/23/17 09:45 BUN/Creatinine Ratio 8.8 02/23/17 09:45 Glucose 108 mg/dL (70-105) H 02/23/17 09:45 Whole Bld Lactic Acid 0.62 mmol/L (0.60-1.99) 02/21/17 19:04 Calcium 8.0 mg/dL (8.6-10.3) L 02/23/17 09:45 Total Bilirubin 0.6 mg/dL (0.3-1.0) 02/21/17 19:00 AST 29 U/L (13-39) 02/21/17 19:00 ALT 21 U/L (7-52) 02/21/17 19:00 Alkaline Phosphatase 158 U/L (34-104) H 02/21/17 19:00 Creatine Kinase 10 U/L (30-223) L 02/21/17 19:00 Troponin I 0.01 ng/mL (0.01-0.05) 02/21/17 19:04 B-Natriuretic Peptide 17.8 pg/mL (5.0-100.0) 02/21/17 19:00 Total Protein 7.1 gm/dL (6.0-8.3) 02/21/17 19:00 Albumin 3.3 gm/dL (3.7-5.3) L 02/21/17 19:00 Globulin 3.8 gm/dL 02/21/17 19:00 Albumin/Globulin Ratio 0.9 (1.0-1.8) L 02/21/17 19:00 Triglycerides 134 mg/dL (<150) 02/21/17 19:00 Cholesterol 206 mg/dL (<200) H 02/21/17 19:00 LDL Cholesterol Direct 153 mg/dL (75-193) 02/21/17 19:00 HDL Cholesterol 32 mg/dL (23-92) 02/21/17 19:00 Urine Source CLEAN C 02/22/17 02:10 Urine Color YELLOW 02/22/17 02:10 Urine Clarity HAZY (CLEAR) 02/22/17 02:10 Urine pH 6.0 (4.6 - 8.0) 02/22/17 02:10 Ur Specific [place] 1.020 (1.005-1.030) 02/22/17 02:10 Urine Protein 30 mg/dL (NEGATIVE) H 02/22/17 02:10 Urine Glucose (UA) NEGATIVE mg/dL (NEGATIVE) 02/22/17 02:10 Urine Ketones 15 mg/dL (NEGATIVE) H 02/22/17 02:10 Urine Blood NEGATIVE (NEGATIVE) 02/22/17 02:10 Urine Nitrate NEGATIVE (NEGATIVE) 02/22/17 02:10 Urine Bilirubin NEGATIVE (NEGATIVE) 02/22/17 02:10 Urine Urobilinogen 0.2 E.U./dL (0.2 - 1.0) 02/22/17 02:10 Ur Leukocyte Esterase SMALL (NEGATIVE) H 02/22/17 02:10 Urine RBC 0-2 /hpf (0-5) 02/22/17 02:10 Urine WBC 25-50 /hpf (0-5) H 02/22/17 02:10 Ur Epithelial Cells FEW /lpf (FEW) 02/22/17 02:10 Urine Bacteria MODERATE /hpf (NONE SEEN) 02/22/17 02:10 - Physical Exam Vitals and I&O: Vital Signs Temp 98.7 F 02/24/17 04:00 Pulse 101 02/24/17 04:00 Resp 20 02/24/17 04:00 BP 115/67 02/24/17 04:00 Pulse Ox 98 02/24/17 04:00 Intake & Output 02/23/17 02/24/17 02/24/17 18:59 06:59 18:59 Intake Total 638.333 846.667 303.333 Output Total 400 300 Balance 238.333 546.667 303.333 Weight (lbs) 60.781 kg 61.28 kg Intake: Intake, IV Amount 158.333 746.667 303.333 D5-0.45NS 1,000 ml @ 100 158.333 696.667 303.333 mls/hr IV .Q10H [facility] Rx#: [id number] cefTRIAXone 1 gm In 50 Sodium Chloride 0.9% 50 ml @ 100 mls/hr IV Q24HR [facility] Rx#:[id number] Oral 480 100 Output: Stool 400 300 Other: # Voids 2 Active Medications: Current Medications Acetaminophen (Tylenol) 650 mg PO Q6HR PRN PRN Reason: MILD-MODERATE PAIN Stop: 04/22/17 22:48 Last Admin: 02/23/17 04:48 Dose: 650 mg Allopurinol (Zyloprim) 100 mg PO TID [facility] Stop: 04/23/17 08:59 Last Admin: 02/24/17 09:14 Dose: 100 mg Ascorbic Acid (Vitamin C) 500 mg PO BID [facility] Stop: 04/23/17 08:59 Last Admin: 02/24/17 09:15 Dose: 500 mg Bethanechol Chloride (Urecholine) 25 mg PO TID [facility] Stop: 04/23/17 08:59 Last Admin: 02/24/17 09:15 Dose: 25 mg Docusate Sodium (Colace) 100 mg PO BID [facility] Stop: 04/23/17 08:59 Last Admin: 02/24/17 09:14 Dose: 100 mg Ferrous Sulfate (Iron) 325 mg PO DAILY [facility] Stop: 04/23/17 08:59 Last Admin: 02/24/17 09:14 Dose: 325 mg Ceftriaxone Sodium 1 gm/ (Sodium Chloride) 50 mls @ 100 mls/hr IV Q24HR [facility] Stop: 04/23/17 20:59 Last Infusion: 02/24/17 06:04 Dose: Infused Dextrose/Sodium Chloride (D5-0.45ns) 1,000 mls @ 100 mls/hr IV .Q10H [facility] Stop: 04/22/17 22:59 Last Admin: 02/24/17 09:31 Dose: 100 mls/hr Lactobacillus Rhamnosus (Culturelle) 1 each PO DAILY [facility] Stop: 04/25/17 08:59 Last Admin: 02/24/17 09:14 Dose: 1 each Megestrol Acetate (Megace) 400 mg PO BID [facility] Stop: 04/23/17 08:59 Last Admin: 02/24/17 09:14 Dose: 400 mg Metoclopramide HCl (Reglan) 10 mg PO ACHS [facility] Stop: 04/23/17 07:29 Last Admin: 02/24/17 12:12 Dose: 10 mg Mirtazapine (Remeron) 15 mg PO HS [facility] PRN Reason: Protocol Stop: 04/23/17 20:59 Last Admin: 02/23/17 22:01 Dose: 15 mg Miscellaneous (Armodafinil [Armodafinil]) 100 mg PO TID [facility] Stop: 04/23/17 08:59 Miscellaneous (Probiotic Screen) 1 ea [facility] PRN PRN PRN Reason: PROTOCOL Stop: 04/24/17 11:14 Ondansetron HCl (Zofran) 4 mg IV Q8H PRN PRN Reason: Nausea / Vomiting Stop: 04/22/17 22:55 Last Admin: 02/23/17 17:20 Dose: 4 mg Pantoprazole Sodium (Protonix) 40 mg PO BID [facility] Stop: 04/23/17 08:59 Last Admin: 02/24/17 09:15 Dose: 40 mg Senna (Senna) 17.2 mg PO HS [facility] Stop: 04/23/17 20:59 Last Admin: 02/23/17 22:01 Dose: 17.2 mg Sertraline HCl (Zoloft) 50 mg PO DAILY [facility] Stop: 04/23/17 08:59 Last Admin: 02/24/17 09:15 Dose: 50 mg Tramadol HCl (Ultram) 50 mg PO Q6H PRN PRN Reason: SEVERE PAIN Stop: 04/22/17 22:48 General: no acute distress, well developed, well nourished HEENT: atraumatic, normocephalic Neck: supple, no thyromegaly, no lymphadenopathy Cardiovascular: S1S2, regular Lungs: clear to auscultation bilaterally, clear to percussion Abdomen: soft, no tender, no distended, no hepatomegaly, no splenomegaly Extremities: no cyanosis, no clubbing, no edema Neurological: awake, alert, oriented Skin: intact Infectious Disease Assmt/Plan - Problem List Patient Problems: All Active Problems DEHYDRATION WITH POOR ORAL INTAKE (Acute) - Assessment Assessment: 1. UTI. 2. H/o uterine CA. 3. Failure to thrive. 4. H/o PUD. - Plan Plan: Continue Unasyn. final antibiotics as per culture report. Nutritional Asmnt/Malnutr-PDOC - Dietary Evaluation Malnutrition Findings (Please click <Entered> for more info): Nutritional Asmnt/Malnutrition Start: 02/23/17 13: 56 Text: Status: Complete Freq: Document 02/23/17 13:57 RUSSELL (Rec: 02/23/17 14:11 MPENAFUMEI ROMERO -[id number]) Nutritional Asmnt/Malnutrition Patient General Information Nutritional Screening High Risk Screening Diagnosis Dehydration, FTT, r/o sepsis Pertinent Medical Hx/Surgical Hx HTN, DM, HLD, GERD, arthritis per MD notes Subjective Information Pt seen resting in bed at time of RD visit. Pt appeared somewhat over-nourished for ht . Pt reported ht: 5'1" and wt: 140 lb. Pt reported UBW: 195 lb (about 4 months ago). Pt stated that she has had poor appetite for the last several months, and noted that she had her uterus and ovaries removed, and also had a colostomy done about a month and a half ago, and since then , has not had a desire to eat much. Pt had a bit of soft/ liquid BM in colostomy pouch. Pt reported that she is lactose intolerant. Pt reported use of fish oil. RD inquired about oral supplement Boost Glucose Control; pt reported that she doesn't care for it as she finds it tastes sour. Per RN, pt has no pending plans/procedures, and that pt was started on appetite stimulants. RD encouraged pt to try to increase appetite and PO intakes for adequate nutrition and wt maintenance; pt acknowledged. Pt is not yet meeting optimal nutritional needs. Current diet remains appropriate. Pt declined nutrition education. Current Diet Order/ Nutrition Support CCHO, Boost Glucose Control QID (additional 1000 kcal/day, 56 gm protein) Patient / S.O Can Pertinent Medications VIT C, lipitor, D5%/NaCl IV at 100 ml/hr (408 kcal/day), colace, iron, megace, reglan, remeron, protonix, senna Pertinent Labs 02/22/17: Na 132 L, WBC 12.3 H , Cl 108 H, H/H 10.6 L/31.5 L, Ca 8.5 L 10/17/17: ALB 3.3 L Nutritional Hx/Data Height 1.55 m Height (Calculated Centimeters) 154.9 Current Weight (lbs) 60.781 kg Weight (Calculated Kilograms) 60.8 Weight (Calculated Grams) 17384.4 Usual body Weight (lbs) 195 % Usual Body Weight 69 [place] Body Weight 105 lb, 48 kg. Adj IBW ( obesity): 112 lb, 51 kg % [place] Body Weight 128 Recent Weight Change Yes Weight Status Overweight GI Symptoms GI Symptoms None Food Allergies No Usual diet at home Regular Skin Integrity/Comment: Skin intact; surgical incision noted per RN report Current %PO Negligible < 25% Estimated Nutritional Goals BEE in Kcals: Adj wt of IBW Calories/Kcals/Kg 30-35 kcal/kg Adj IBW for sepsis Kcals Calculated 2996-1423 kcal/day Protein: Adj wt of IBW Protein g/k.5-2 gm/kg Adj IBW for sepsis Protein Calculated 77-102 gm/day Fluid: ml 1.5-1.8 L/day (1 ml/kcal/day for maintenance) Nutritional Problem 1. Problem Problem Inadequate nutritional intakes Etiology related to lack of appetite Signs/Symptoms: as evidenced by pt's negligible PO intake records as well as pt report of 60 lb wt loss within past 4 months. Malnutrition Alert Food and Nutrition Intake (Severe) <50% est energy req 5days Interpretation of weight loss (Severe) >7.5% in 3 months Body Fat Depletion (Non-Severe) Mild Depletion Muscle Mass (Non-Severe) Mild Depletion Is there a minimum of two criteria Yes selected? Query Text:Check all the applicable criteria. A minimum of two criteria are recommended for diagnosis of either severe or non-severe malnutrition. Malnutrition Related to Morbid Obesity Malnutrition related to morbid obesity No Intervention/Recommendation Recommendations by RD Increase Calorie Intake Protein supplementation Comments * Recommend continuing CCHO, Boost Glucose Control QID per MD * Recommend encourage increase PO intakes Expected Outcomes/Goals Expected Outcomes/Goals - Monitor appetite and PO intakes w/ goal of pt meeting at least 75% of estimated nutritional needs, labs trending WNL, normal GI function, and skin integrity/ wt maintenance
[2017-02-24] MEDS ORDERED: Potassium Chloride 20 mEq ER Tab PO ONE (20:00)
--- NOTE | 2017-02-24 20:00 | Internal Medicine Prog Note ---
Internal Medicine Subjective - Subjective Service Date: 02/24/17 Patient seen and examined:: with staff Patient is:: awake Per staff patient has:: tolerating meds Internal Medicine Objective - Results Result Diagrams: 02/24/17 09:00 02/23/17 09:45 Recent Labs: Laboratory Last Values WBC 11.5 Th/cmm (4.8-10.8) H 02/24/17 09:00 RBC 3.40 Mil/cmm (3.80-5.20) L 02/24/17 09:00 Hgb 10.2 gm/dL (12-16) L 02/24/17 09:00 Hct 30.2 % (41.0-60) L 02/24/17 09:00 MCV 88.8 fl (81-100) 02/24/17 09:00 MCH 30.1 pg (27.0-31.0) 02/24/17 09:00 MCHC Differential 33.9 pg (28.0-36.0) 02/24/17 09:00 RDW 17.0 % (11.5-20.0) 02/24/17 09:00 Plt Count 327 Th/cmm (150-400) 02/24/17 09:00 MPV 7.6 fl 02/24/17 09:00 Neutrophils % 61.5 % (40.0-80.0) 02/24/17 09:00 Lymphocytes % 15.6 % (20.0-50.0) L 02/24/17 09:00 Monocytes % 9.8 % (2.0-10.0) 02/24/17 09:00 Eosinophils % 12.6 % (0.0-5.0) H 02/24/17 09:00 Basophils % 0.5 % (0.0-2.0) 02/24/17 09:00 PT 9.4 SECONDS (9.5-11.5) L 02/21/17 19:00 INR 0.90 (0.5-1.4) 02/21/17 19:00 PTT (Actin FS) 33.8 SECONDS (26.0-38.0) 02/21/17 19:00 Sodium 132 mEq/L (136-145) L 02/23/17 09:45 Potassium 3.3 mEq/L (3.5-5.1) L 02/23/17 09:45 Chloride 108 mEq/L (98-107) H 02/23/17 09:45 Carbon Dioxide 15.7 mEq/L (21.0-31.0) L 02/23/17 09:45 Anion Gap 11.6 (7.0-16.0) 02/23/17 09:45 BUN 7 mg/dL (7-25) 02/23/17 09:45 Creatinine 0.8 mg/dL (0.6-1.2) 02/23/17 09:45 Est GFR ( Amer) > 60.0 ml/min (>90) 02/23/17 09:45 Est GFR (Non-Af Amer) > 60.0 ml/min 02/23/17 09:45 BUN/Creatinine Ratio 8.8 02/23/17 09:45 Glucose 108 mg/dL (70-105) H 02/23/17 09:45 Whole Bld Lactic Acid 0.62 mmol/L (0.60-1.99) 02/21/17 19:04 Calcium 8.0 mg/dL (8.6-10.3) L 02/23/17 09:45 Total Bilirubin 0.6 mg/dL (0.3-1.0) 02/21/17 19:00 AST 29 U/L (13-39) 02/21/17 19:00 ALT 21 U/L (7-52) 02/21/17 19:00 Alkaline Phosphatase 158 U/L (34-104) H 02/21/17 19:00 Creatine Kinase 10 U/L (30-223) L 02/21/17 19:00 Troponin I 0.01 ng/mL (0.01-0.05) 02/21/17 19:04 B-Natriuretic Peptide 17.8 pg/mL (5.0-100.0) 02/21/17 19:00 Total Protein 7.1 gm/dL (6.0-8.3) 02/21/17 19:00 Albumin 3.3 gm/dL (3.7-5.3) L 02/21/17 19:00 Globulin 3.8 gm/dL 02/21/17 19:00 Albumin/Globulin Ratio 0.9 (1.0-1.8) L 02/21/17 19:00 Triglycerides 134 mg/dL (<150) 02/21/17 19:00 Cholesterol 206 mg/dL (<200) H 02/21/17 19:00 LDL Cholesterol Direct 153 mg/dL (75-193) 02/21/17 19:00 HDL Cholesterol 32 mg/dL (23-92) 02/21/17 19:00 Urine Source CLEAN C 02/22/17 02:10 Urine Color YELLOW 02/22/17 02:10 Urine Clarity HAZY (CLEAR) 02/22/17 02:10 Urine pH 6.0 (4.6 - 8.0) 02/22/17 02:10 Ur Specific [place] 1.020 (1.005-1.030) 02/22/17 02:10 Urine Protein 30 mg/dL (NEGATIVE) H 02/22/17 02:10 Urine Glucose (UA) NEGATIVE mg/dL (NEGATIVE) 02/22/17 02:10 Urine Ketones 15 mg/dL (NEGATIVE) H 02/22/17 02:10 Urine Blood NEGATIVE (NEGATIVE) 02/22/17 02:10 Urine Nitrate NEGATIVE (NEGATIVE) 02/22/17 02:10 Urine Bilirubin NEGATIVE (NEGATIVE) 02/22/17 02:10 Urine Urobilinogen 0.2 E.U./dL (0.2 - 1.0) 02/22/17 02:10 Ur Leukocyte Esterase SMALL (NEGATIVE) H 02/22/17 02:10 Urine RBC 0-2 /hpf (0-5) 02/22/17 02:10 Urine WBC 25-50 /hpf (0-5) H 02/22/17 02:10 Ur Epithelial Cells FEW /lpf (FEW) 02/22/17 02:10 Urine Bacteria MODERATE /hpf (NONE SEEN) 02/22/17 02:10 - Physical Exam Vitals and I&O: Vital Signs Temp 99.1 F 02/24/17 16:00 Pulse 100 02/24/17 16:00 Resp 19 02/24/17 16:00 BP 105/55 02/24/17 16:00 Pulse Ox 97 02/24/17 16:00 Intake & Output 02/24/17 02/24/17 02/25/17 06:59 18:59 06:59 Intake Total 846.667 303.333 Output Total 300 Balance 546.667 303.333 Weight (lbs) 135 lb 1.6 oz Intake: Intake, IV Amount 746.667 303.333 D5-0.45NS 1,000 ml @ 100 696.667 303.333 mls/hr IV .Q10H [facility] Rx#: [id number] cefTRIAXone 1 gm In 50 Sodium Chloride 0.9% 50 ml @ 100 mls/hr IV Q24HR [facility] Rx#:[id number] Oral 100 Output: Stool 300 Other: # Voids 2 Active Medications: Current Medications Acetaminophen (Tylenol) 650 mg PO Q6HR PRN PRN Reason: MILD-MODERATE PAIN Stop: 04/22/17 22:48 Last Admin: 02/23/17 04:48 Dose: 650 mg Allopurinol (Zyloprim) 100 mg PO TID [facility] Stop: 04/23/17 08:59 Last Admin: 02/24/17 15:49 Dose: 100 mg Ascorbic Acid (Vitamin C) 500 mg PO BID [facility] Stop: 04/23/17 08:59 Last Admin: 02/24/17 17:08 Dose: 500 mg Bethanechol Chloride (Urecholine) 25 mg PO TID [facility] Stop: 04/23/17 08:59 Last Admin: 02/24/17 15:51 Dose: 25 mg Docusate Sodium (Colace) 100 mg PO BID [facility] Stop: 04/23/17 08:59 Last Admin: 02/24/17 17:08 Dose: 100 mg Ferrous Sulfate (Iron) 325 mg PO DAILY [facility] Stop: 04/23/17 08:59 Last Admin: 02/24/17 09:14 Dose: 325 mg Ceftriaxone Sodium 1 gm/ (Sodium Chloride) 50 mls @ 100 mls/hr IV Q24HR [facility] Stop: 04/23/17 20:59 Last Infusion: 02/24/17 06:04 Dose: Infused Dextrose/Sodium Chloride (D5-0.45ns) 1,000 mls @ 100 mls/hr IV .Q10H [facility] Stop: 04/22/17 22:59 Last Admin: 02/24/17 09:31 Dose: 100 mls/hr Lactobacillus Rhamnosus (Culturelle) 1 each PO DAILY [facility] Stop: 04/25/17 08:59 Last Admin: 02/24/17 09:14 Dose: 1 each Megestrol Acetate (Megace) 400 mg PO BID [facility] Stop: 04/23/17 08:59 Last Admin: 02/24/17 17:09 Dose: Not Given Metoclopramide HCl (Reglan) 10 mg PO ACHS [facility] Stop: 04/23/17 07:29 Last Admin: 02/24/17 15:52 Dose: 10 mg Mirtazapine (Remeron) 15 mg PO HS [facility] PRN Reason: Protocol Stop: 04/23/17 20:59 Last Admin: 02/23/17 22:01 Dose: 15 mg Miscellaneous (Armodafinil [Armodafinil]) 100 mg PO TID [facility] Stop: 04/23/17 08:59 Miscellaneous (Probiotic Screen) 1 ea MC PRN PRN PRN Reason: PROTOCOL Stop: 04/24/17 11:14 Ondansetron HCl (Zofran) 4 mg IV Q8H PRN PRN Reason: Nausea / Vomiting Stop: 04/22/17 22:55 Last Admin: 02/23/17 17:20 Dose: 4 mg Pantoprazole Sodium (Protonix) 40 mg PO BID [facility] Stop: 04/23/17 08:59 Last Admin: 02/24/17 17:08 Dose: 40 mg Potassium Chloride (Klor-Con) 20 meq PO X1 [facility] Stop: 02/24/17 20:01 Senna (Senna) 17.2 mg PO HS [facility] Stop: 04/23/17 20:59 Last Admin: 02/23/17 22:01 Dose: 17.2 mg Sertraline HCl (Zoloft) 50 mg PO DAILY [facility] Stop: 04/23/17 08:59 Last Admin: 02/24/17 09:15 Dose: 50 mg Tramadol HCl (Ultram) 50 mg PO Q6H PRN PRN Reason: SEVERE PAIN Stop: 04/22/17 22:48 HEENT: NC/AT, PERRLA Lungs: CTAB Cardiovascular: RRR, Normal S1, Normal S2, without murmur Abdomen: soft, non-tender, non-distended, positive bowel sound Neurological: no change Internal Medicine Assmt/Plan - Assessment Assessment: DEHYDRATION WITH POOR ORAL INTAKE (Acute) - Plan Plan: IVF FOR HYDRATION MONITOR LABS CPM Nutritional Asmnt/Malnutr-PDOC - Dietary Evaluation Malnutrition Findings (Please click <Entered> for more info): Nutritional Asmnt/Malnutrition Start: 02/23/17 13: 56 Text: Status: Complete Freq: Document 02/23/17 13:57 RUSSELL (Rec: 02/23/17 14:11 RUSSELL ROMERO -[id number]) Nutritional Asmnt/Malnutrition Patient General Information Nutritional Screening High Risk Screening Diagnosis Dehydration, FTT, r/o sepsis Pertinent Medical Hx/Surgical Hx HTN, DM, HLD, GERD, arthritis per MD notes Subjective Information Pt seen resting in bed at time of RD visit. Pt appeared somewhat over-nourished for ht . Pt reported ht: 5'1" and wt: 140 lb. Pt reported UBW: 195 lb (about 4 months ago). Pt stated that she has had poor appetite for the last several months, and noted that she had her uterus and ovaries removed, and also had a colostomy done about a month and a half ago, and since then , has not had a desire to eat much. Pt had a bit of soft/ liquid BM in colostomy pouch. Pt reported that she is lactose intolerant. Pt reported use of fish oil. RD inquired about oral supplement Boost Glucose Control; pt reported that she doesn't care for it as she finds it tastes sour. Per RN, pt has no pending plans/procedures, and that pt was started on appetite stimulants. RD encouraged pt to try to increase appetite and PO intakes for adequate nutrition and wt maintenance; pt acknowledged. Pt is not yet meeting optimal nutritional needs. Current diet remains appropriate. Pt declined nutrition education. Current Diet Order/ Nutrition Support CCHO, Boost Glucose Control QID (additional 1000 kcal/day, 56 gm protein) Patient / S.O Can Pertinent Medications VIT C, lipitor, D5%/NaCl IV at 100 ml/hr (408 kcal/day), colace, iron, megace, reglan, remeron, protonix, senna Pertinent Labs 02/22/17: Na 132 L, WBC 12.3 H , Cl 108 H, H/H 10.6 L/31.5 L, Ca 8.5 L 02/21/17: ALB 3.3 L Nutritional Hx/Data Height 5 ft 1 in Height (Calculated Centimeters) 154.9 Current Weight (lbs) 134 lb Weight (Calculated Kilograms) 60.8 Weight (Calculated Grams) 26319.4 Usual body Weight (lbs) 195 % Usual Body Weight 69 [place] Body Weight 105 lb, 48 kg. Adj IBW ( obesity): 112 lb, 51 kg % [place] Body Weight 128 Recent Weight Change Yes Weight Status Overweight GI Symptoms GI Symptoms None Food Allergies No Usual diet at home Regular Skin Integrity/Comment: Skin intact; surgical incision noted per RN report Current %PO Negligible < 25% Estimated Nutritional Goals BEE in Kcals: Adj wt of IBW Calories/Kcals/Kg 30-35 kcal/kg Adj IBW for sepsis Kcals Calculated 3739-5818 kcal/day Protein: Adj wt of IBW Protein g/k.5-2 gm/kg Adj IBW for sepsis Protein Calculated 77-102 gm/day Fluid: ml 1.5-1.8 L/day (1 ml/kcal/day for maintenance) Nutritional Problem 1. Problem Problem Inadequate nutritional intakes Etiology related to lack of appetite Signs/Symptoms: as evidenced by pt's negligible PO intake records as well as pt report of 60 lb wt loss within past 4 months. Malnutrition Alert Food and Nutrition Intake (Severe) <50% est energy req 5days Interpretation of weight loss (Severe) >7.5% in 3 months Body Fat Depletion (Non-Severe) Mild Depletion Muscle Mass (Non-Severe) Mild Depletion Is there a minimum of two criteria Yes selected? Query Text:Check all the applicable criteria. A minimum of two criteria are recommended for diagnosis of either severe or non-severe malnutrition. Malnutrition Related to Morbid Obesity Malnutrition related to morbid obesity No Intervention/Recommendation Recommendations by RD Increase Calorie Intake Protein supplementation Comments * Recommend continuing CCHO, Boost Glucose Control QID per MD * Recommend encourage increase PO intakes Expected Outcomes/Goals Expected Outcomes/Goals - Monitor appetite and PO intakes w/ goal of pt meeting at least 75% of estimated nutritional needs, labs trending WNL, normal GI function, and skin integrity/ wt maintenance
[2017-02-24] MEDS: cefTRIAXone 1 GM in Sodium Chloride 0.9% 50 ML IV SCH (21:21)
[2017-02-25] MEDS: Lactobacillus Rhamnosus 10 Billion CFU Capsule PO SCH (09:39)
[2017-02-25] MEDS: Ferrous Sulfate 325 MG TAB PO SCH (09:40)
[2017-02-25] MEDS: Pantoprazole 40 mg EC Tab PO SCH (09:40)
--- NOTE | 2017-02-25 10:14 | Progress Notes ---
DATE: 02/25/2017 SUBJECTIVE: The patient was seen in her room, lying in the bed. Per patient, she has some intermittent abdominal cramping pain about 3/10, but tolerable, otherwise the patient appears to be comfortable in no acute distress. OBJECTIVE: VITAL SIGNS: Temperature 98.6, heart rate of 98, blood pressure 118/58, respirations of 18, 98% on room air. HEAD: Atraumatic and normocephalic. EYES: Bilateral conjunctivae are clear. Bilateral pupils are equally round and reactive. NECK: Supple. No JVD. CARDIOVASCULAR: S1 and S2, without murmur. PULMONARY: Clear to auscultation. GASTROINTESTINAL: Soft and nontender without guarding. Positive bowel sounds. MUSCULOSKELETAL: No clubbing, no cyanosis noted. ASSESSMENT: 1. Abdominal pain. 2. Failure to thrive. 3. Questionable uterine cancer. 4. Hypertension. 5. Gastroesophageal reflux disease. 6. Dehydration. 7. Hyperlipidemia. 8. Osteoarthritis. PLAN: Will follow up with the GI doctor to monitor the patient's condition and behavior. Will also follow up with ID doctor. Treatment plans were discussed with the patient's nurse. Treatment plans were discussed with Dr. Enamorado. JOB# [id number]
--- NOTE | 2017-02-25 10:46 | GI Progress Note ---
Subjective - Review of Systems Service Date: 02/25/17 Subjective: Family did not want PEG placement Objective - Results Result Diagrams: 02/24/17 09:00 02/23/17 09:45 Recent Labs: Laboratory Last Values WBC 11.5 Th/cmm (4.8-10.8) H 02/24/17 09:00 RBC 3.40 Mil/cmm (3.80-5.20) L 02/24/17 09:00 Hgb 10.2 gm/dL (12-16) L 02/24/17 09:00 Hct 30.2 % (41.0-60) L 02/24/17 09:00 MCV 88.8 fl (81-100) 02/24/17 09:00 MCH 30.1 pg (27.0-31.0) 02/24/17 09:00 MCHC Differential 33.9 pg (28.0-36.0) 02/24/17 09:00 RDW 17.0 % (11.5-20.0) 02/24/17 09:00 Plt Count 327 Th/cmm (150-400) 02/24/17 09:00 MPV 7.6 fl 02/24/17 09:00 Neutrophils % 61.5 % (40.0-80.0) 02/24/17 09:00 Lymphocytes % 15.6 % (20.0-50.0) L 02/24/17 09:00 Monocytes % 9.8 % (2.0-10.0) 02/24/17 09:00 Eosinophils % 12.6 % (0.0-5.0) H 02/24/17 09:00 Basophils % 0.5 % (0.0-2.0) 02/24/17 09:00 PT 9.4 SECONDS (9.5-11.5) L 02/21/17 19:00 INR 0.90 (0.5-1.4) 02/21/17 19:00 PTT (Actin FS) 33.8 SECONDS (26.0-38.0) 02/21/17 19:00 Sodium 132 mEq/L (136-145) L 02/23/17 09:45 Potassium 3.3 mEq/L (3.5-5.1) L 02/23/17 09:45 Chloride 108 mEq/L (98-107) H 02/23/17 09:45 Carbon Dioxide 15.7 mEq/L (21.0-31.0) L 02/23/17 09:45 Anion Gap 11.6 (7.0-16.0) 02/23/17 09:45 BUN 7 mg/dL (7-25) 02/23/17 09:45 Creatinine 0.8 mg/dL (0.6-1.2) 02/23/17 09:45 Est GFR ( Amer) > 60.0 ml/min (>90) 02/23/17 09:45 Est GFR (Non-Af Amer) > 60.0 ml/min 02/23/17 09:45 BUN/Creatinine Ratio 8.8 02/23/17 09:45 Glucose 108 mg/dL (70-105) H 02/23/17 09:45 Whole Bld Lactic Acid 0.62 mmol/L (0.60-1.99) 02/21/17 19:04 Calcium 8.0 mg/dL (8.6-10.3) L 02/23/17 09:45 Total Bilirubin 0.6 mg/dL (0.3-1.0) 02/21/17 19:00 AST 29 U/L (13-39) 02/21/17 19:00 ALT 21 U/L (7-52) 02/21/17 19:00 Alkaline Phosphatase 158 U/L (34-104) H 02/21/17 19:00 Creatine Kinase 10 U/L (30-223) L 02/21/17 19:00 Troponin I 0.01 ng/mL (0.01-0.05) 02/21/17 19:04 B-Natriuretic Peptide 17.8 pg/mL (5.0-100.0) 02/21/17 19:00 Total Protein 7.1 gm/dL (6.0-8.3) 02/21/17 19:00 Albumin 3.3 gm/dL (3.7-5.3) L 02/21/17 19:00 Globulin 3.8 gm/dL 02/21/17 19:00 Albumin/Globulin Ratio 0.9 (1.0-1.8) L 02/21/17 19:00 Triglycerides 134 mg/dL (<150) 02/21/17 19:00 Cholesterol 206 mg/dL (<200) H 02/21/17 19:00 LDL Cholesterol Direct 153 mg/dL (75-193) 02/21/17 19:00 HDL Cholesterol 32 mg/dL (23-92) 02/21/17 19:00 Urine Source CLEAN C 02/22/17 02:10 Urine Color YELLOW 02/22/17 02:10 Urine Clarity HAZY (CLEAR) 02/22/17 02:10 Urine pH 6.0 (4.6 - 8.0) 02/22/17 02:10 Ur Specific [place] 1.020 (1.005-1.030) 02/22/17 02:10 Urine Protein 30 mg/dL (NEGATIVE) H 02/22/17 02:10 Urine Glucose (UA) NEGATIVE mg/dL (NEGATIVE) 02/22/17 02:10 Urine Ketones 15 mg/dL (NEGATIVE) H 02/22/17 02:10 Urine Blood NEGATIVE (NEGATIVE) 02/22/17 02:10 Urine Nitrate NEGATIVE (NEGATIVE) 02/22/17 02:10 Urine Bilirubin NEGATIVE (NEGATIVE) 02/22/17 02:10 Urine Urobilinogen 0.2 E.U./dL (0.2 - 1.0) 02/22/17 02:10 Ur Leukocyte Esterase SMALL (NEGATIVE) H 02/22/17 02:10 Urine RBC 0-2 /hpf (0-5) 02/22/17 02:10 Urine WBC 25-50 /hpf (0-5) H 02/22/17 02:10 Ur Epithelial Cells FEW /lpf (FEW) 02/22/17 02:10 Urine Bacteria MODERATE /hpf (NONE SEEN) 02/22/17 02:10 - Physical Exam Vitals and I&O: Vital Signs Temp 98.6 F 02/25/17 04:00 Pulse 103 02/25/17 04:00 Resp 18 02/25/17 04:00 BP 118/58 02/25/17 04:00 Pulse Ox 98 02/25/17 04:00 Intake & Output 02/24/17 02/25/17 02/25/17 18:59 06:59 18:59 Intake Total 990.760 9790 Output Total 250 Balance 055.978 9817 Weight (lbs) 62.188 kg Intake: Intake, IV Amount 440.453 7577 D5-0.45NS 1,000 ml @ 100 683.545 7983 mls/hr IV .Q10H [facility] Rx#: [id number] cefTRIAXone 1 gm In 50 Sodium Chloride 0.9% 50 ml @ 100 mls/hr IV Q24HR [facility] Rx#:[id number] Oral 240 Output: Stool 250 Other: # Voids 3 Active Medications: Current Medications Acetaminophen (Tylenol) 650 mg PO Q6HR PRN PRN Reason: MILD-MODERATE PAIN Stop: 04/22/17 22:48 Last Admin: 02/23/17 04:48 Dose: 650 mg Allopurinol (Zyloprim) 100 mg PO TID [facility] Stop: 04/23/17 08:59 Last Admin: 02/25/17 09:40 Dose: 100 mg Ascorbic Acid (Vitamin C) 500 mg PO BID [facility] Stop: 04/23/17 08:59 Last Admin: 02/25/17 09:40 Dose: 500 mg Bethanechol Chloride (Urecholine) 25 mg PO TID [facility] Stop: 04/23/17 08:59 Last Admin: 02/25/17 09:40 Dose: 25 mg Docusate Sodium (Colace) 100 mg PO BID [facility] Stop: 04/23/17 08:59 Last Admin: 02/25/17 09:39 Dose: 100 mg Ferrous Sulfate (Iron) 325 mg PO DAILY [facility] Stop: 04/23/17 08:59 Last Admin: 02/25/17 09:40 Dose: 325 mg Ceftriaxone Sodium 1 gm/ (Sodium Chloride) 50 mls @ 100 mls/hr IV Q24HR [facility] Stop: 04/23/17 20:59 Last Infusion: 02/24/17 21:51 Dose: Infused Dextrose/Sodium Chloride (D5-0.45ns) 1,000 mls @ 100 mls/hr IV .Q10H [facility] Stop: 04/22/17 22:59 Last Admin: 02/24/17 21:23 Dose: 100 mls/hr Lactobacillus Rhamnosus (Culturelle) 1 each PO DAILY [facility] Stop: 04/25/17 08:59 Last Admin: 02/25/17 09:39 Dose: 1 each Megestrol Acetate (Megace) 400 mg PO BID [facility] Stop: 04/23/17 08:59 Last Admin: 02/25/17 09:39 Dose: 400 mg Metoclopramide HCl (Reglan) 10 mg PO ACHS [facility] Stop: 04/23/17 07:29 Last Admin: 02/25/17 06:57 Dose: 10 mg Mirtazapine (Remeron) 15 mg PO HS [facility] PRN Reason: Protocol Stop: 04/23/17 20:59 Last Admin: 02/24/17 21:17 Dose: 15 mg Miscellaneous (Armodafinil [Armodafinil]) 100 mg PO TID [facility] Stop: 04/23/17 08:59 Miscellaneous (Probiotic Screen) 1 ea MC PRN PRN PRN Reason: PROTOCOL Stop: 04/24/17 11:14 Ondansetron HCl (Zofran) 4 mg IV Q8H PRN PRN Reason: Nausea / Vomiting Stop: 04/22/17 22:55 Last Admin: 02/23/17 17:20 Dose: 4 mg Pantoprazole Sodium (Protonix) 40 mg PO BID [facility] Stop: 04/23/17 08:59 Last Admin: 02/25/17 09:40 Dose: 40 mg Senna (Senna) 17.2 mg PO HS [facility] Stop: 04/23/17 20:59 Last Admin: 02/24/17 21:17 Dose: 17.2 mg Sertraline HCl (Zoloft) 50 mg PO DAILY [facility] Stop: 04/23/17 08:59 Last Admin: 02/25/17 09:39 Dose: 50 mg Tramadol HCl (Ultram) 50 mg PO Q6H PRN PRN Reason: SEVERE PAIN Stop: 04/22/17 22:48 General: No acute distress HEENT: Atraumatic, PERRLA Neck: Supple, Thyromegaly Cardiovascular: Regular rate, Normal S1 Lungs: Clear to auscultation Abdomen: Bowel sounds Assessment/Plan - Problem List Patient Problems: All Active Problems DEHYDRATION WITH POOR ORAL INTAKE (Acute) - Assessment Assessment: # Metastatic malignancy # Failure to thrive As per discussion with Dr Flaherty and the pt's family, a PEG is not desired at this time. She will be continuing on remeron and megase as appetite stimulants. She did eat breakfast this morning - cont remeron and megase - no PEG planned at this time
[2017-02-25 11:34] LABS: ALB/GLOB RATIO 0.9 (1.0-1.8); ALKALINE PHOSPHATASE 127 U/L (34-104); ANION GAP 11.3 (7.0-16.0); BILIRUBIN,TOTAL 0.5 mg/dL (0.3-1.0); BUN - UREA NITROGEN 7 mg/dL (7-25); BUN/CREATININE RATIO 11.7; CALCIUM SERUM 7.9 mg/dL (8.6-10.3); CARBON DIOXIDE 14.2 mEq/L (21.0-31.0); CHLORIDE 111 mEq/L (98-107); CREATININE - SERUM 0.6 mg/dL (0.6-1.2); GLUCOSE 122 mg/dL (70-105); POTASSIUM SERUM 3.5 mEq/L (3.5-5.1); SGOT 19 U/L (13-39); SGPT/ALT 10 U/L (7-52); SODIUM SERUM 133 mEq/L (136-145)
[2017-02-25] MEDS ORDERED: Potassium Chloride 20 mEq ER Tab PO ONE (12:21)
--- NOTE | 2017-03-04 20:15 | Discharge Summary ---
DATE OF DISCHARGE: 02/25/2017 COURSE OF TREATMENT: This is a 66-year-old female admitted through the Emergency Room from a [place] [facility] due to severe abdominal pain and failure to thrive. Subsequently, tests were done in the Emergency Room and afterwards the patient was admitted to the telemetry unit where appian bpm developer was consulted per GI standpoint. The patient has nonspecific abdominal pain, adult failure to thrive, and also some questionable uterine cancer. Per recommendation, the patient will be needed gastrostomy tube, but unfortunately the family members are refusing at this time. Hence otherwise, the patient was discharged back to [facility] for Dr. Enamorado to follow the patient and medication reconciliation were done. JOB# [id number]
== END 2017-02-25 15:50 | disposition home or self-care (01) | DRG 640 ==
LOC: ER 18:23 → TELE 19:45
PROVIDERS: ADMIT Internal Medicine; ATTEND Internal Medicine
DX: E87.1 Hypo-osmolality and hyponatremia (principal); R65.11 Systemic inflammatory response syndrome (SIRS) of non-infectious origin with acute organ dysfunction; E86.0 Dehydration; C76.2 Malignant neoplasm of abdomen; K27.9 Peptic ulcer, site unspecified, unspecified as acute or chronic, without hemorrhage or perforation; I10 Essential (primary) hypertension; N39.0 Urinary tract infection, site not specified; E44.1 Mild protein-calorie malnutrition; R62.7 Adult failure to thrive; E11.9 Type 2 diabetes mellitus without complications; E78.5 Hyperlipidemia, unspecified; K21.9 Gastro-esophageal reflux disease without esophagitis; M19.90 Unspecified osteoarthritis, unspecified site; F32.9 Major depressive disorder, single episode, unspecified; D64.9 Anemia, unspecified; Z68.25 Body mass index [BMI] 25.0-25.9, adult; Z83.3 Family history of diabetes mellitus; Z82.49 Family history of ischemic heart disease and other diseases of the circulatory system; Z90.710 Acquired absence of both cervix and uterus
CPT/HCPCS: 36415-UA; 71010-TC; 76700-TC; 80048-TC; 80053-TC; 80061-TC; 81001-TC; 82550-TC; 83605; 83880-TC; 84484-TC; 85007-TC; 85025-TC; 85027-TC; 85610-TC; 85730-TC; 87086-90; 93005; 94760; J0696; J2405; J7030; Z7610